=== PATIENT | female | born 1985 | race Caucasian/White ===

== ENCOUNTER → 2017-06-18 11:50 | Outpatient (CLI) | payer OTHER, SELFPAY ==
[2017-06-18 12:55] LABS: Hematocrit 44.8 % (37-47); Hemoglobin 15.3 g/dl (12.0-15.0); Mean Corp Hgb Conc 34.2 g/gl (32-36); Mean Corpuscular Hgb 29.5 pg (27.0-32.0); Mean Corpuscular Volume 86.5 fL (81-99); Mean Platelet Vol. 9.9 fl (6.2-12.0); Platelet Count 309 K/mm3 (150-450); RBC Distribution Width CV 13.4 % (11.6-14.6); Red Blood Count 5.18 M/mm3 (4.2-5.4); White Blood Count 6.1 K/mm3 (4.4-11.0)
[2017-06-18 12:57] LABS: Scan Indicated on CBC? Y/N NO
[2017-06-18 13:15] LABS: hCG Titer Quant., Serum < 1 mIU/mL (<9 non-preg)
[2017-06-18 13:19] LABS: Hemoglobin A1c 5.7 % (4.2-6.3)
[2017-06-18 13:21] LABS: Progesterone Level 0.72 ng/mL (See Comment)
[2017-06-18 13:22] LABS: Estradiol 72.5 pg/mL; Follicle Stimulating Hormone 6.5 mIU/mL; Free T3 3.1 pg/mL (2.18-3.98); Luteinizing Hormone 9.1 mIU/mL; Prolactin 4.4 ng/mL; T4 Free Direct 1.05 ng/dL (0.76-1.46); Thyroid Stim Hormone (TSH) 1.75 uIU/mL (0.358-3.74)
[2017-06-20 15:04] LABS: HPV Reflexed? NOT INDICATED
== END ==
PROVIDERS: Visit Provider Obstetrics & Gynecology
DX: N92.6 Irregular menstruation, unspecified (principal); Z12.4 Encounter for screening for malignant neoplasm of cervix
CPT/HCPCS: 36415; 82670; 83001; 83002; 83036; 84144; 84146; 84403; 84439; 84443; 84481; 84702; 85027; 88175; G0145

== ENCOUNTER → 2017-07-09 12:25 | Outpatient (CLI) | payer OTHER, SELFPAY ==
--- NOTE | 2017-07-09 12:30 | US_ITS ---
STUDY: ULTRASOUND TRANSVAGINAL CLINICAL: Female, 31 years old. Dysfunctional uterine bleeding. TECHNIQUE: Transvaginal COMPARISON: None. FINDINGS: Normal uterine size measuring 6.6 x 4.0 x 5.5 cm in maximal craniocaudal dimension. There are no myometrial masses. Normal endometrial thickness measuring 2.3 mm. There are no endometrial masses, and there is no fluid in the endometrial cavity. Normal uterine cervix. Normal right ovary, measuring 3.8 x 1.6 x 3.1 cm. There are multiple follicles without a dominant cyst. Normal left ovary, measuring 3.3 x 1.8 x 3.0 cm. There are multiple follicles without a dominant cyst. There is no free fluid in the pelvis. Polycystic ovary disease: No. US/Transvaginal Non- IMPRESSION: No significant or definite abnormality. Electronically Signed: Deejay Rodrigues MD at 13:18 EDT , Service support ,
--- NOTE | 2017-07-09 12:30 | US_ITS ---
STUDY: ULTRASOUND TRANSVAGINAL CLINICAL: Female, 31 years old. Dysfunctional uterine bleeding. TECHNIQUE: Transvaginal COMPARISON: None. FINDINGS: Normal uterine size measuring 6.6 x 4.0 x 5.5 cm in maximal craniocaudal dimension. There are no myometrial masses. Normal endometrial thickness measuring 2.3 mm. There are no endometrial masses, and there is no fluid in the endometrial cavity. Normal uterine cervix. Normal right ovary, measuring 3.8 x 1.6 x 3.1 cm. There are multiple follicles without a dominant cyst. Normal left ovary, measuring 3.3 x 1.8 x 3.0 cm. There are multiple follicles without a dominant cyst. There is no free fluid in the pelvis. Polycystic ovary disease: No. US/Pelvic (Non ) IMPRESSION: No significant or definite abnormality. Electronically Signed: Deejay Rodrigues MD at 13:18 EDT , Service support ,
== END ==
PROVIDERS: Visit Provider Obstetrics & Gynecology
DX: N92.6 Irregular menstruation, unspecified (principal)
CPT/HCPCS: 76830; 76856; 93976

== ENCOUNTER → 2017-11-03 15:36 | Outpatient (CLI) | payer OTHER, SELFPAY ==
[2017-11-03 18:06] LABS: hCG Titer Quant., Serum < 1 mIU/mL (<9 non-preg)
== END ==
PROVIDERS: Visit Provider Obstetrics & Gynecology
DX: N91.2 Amenorrhea, unspecified (principal)
CPT/HCPCS: 36415; 84702

== ENCOUNTER → 2017-12-05 09:33 | Outpatient (CLI) | payer OTHER, SELFPAY ==
[2017-12-05 11:32] LABS: Progesterone Level 14.51 ng/mL (See Comment)
== END ==
PROVIDERS: Visit Provider Obstetrics & Gynecology
DX: N97.0 Female infertility associated with anovulation (principal)
CPT/HCPCS: 36415; 84144

== ENCOUNTER → 2018-01-01 16:36 | Outpatient (CLI) | payer OTHER, SELFPAY ==
[2018-01-02 12:11] LABS: Progesterone Level 2.24 ng/mL (See Comment)
== END ==
PROVIDERS: Visit Provider Obstetrics & Gynecology
DX: N97.0 Female infertility associated with anovulation (principal)
CPT/HCPCS: 36415; 84144

== ENCOUNTER → 2018-02-03 11:17 | Outpatient (CLI) | payer OTHER, SELFPAY | PROVIDERS: Visit Provider Obstetrics & Gynecology | DX: N97.0 Female infertility associated with anovulation (principal) | CPT/HCPCS: 36415; 84144 ==

== ENCOUNTER → 2018-03-09 11:02 | Outpatient (CLI) | payer OTHER, SELFPAY | PROVIDERS: Visit Provider Obstetrics & Gynecology | DX: N97.0 Female infertility associated with anovulation (principal) | CPT/HCPCS: 36415; 84144 ==

== ENCOUNTER → 2018-04-07 16:55 | Outpatient (CLI) | payer OTHER, SELFPAY ==
[2018-04-07 17:55] LABS: Progesterone Level 7.01 ng/mL (See Comment)
--- OUTSIDE RECORDS SUMMARY | 2018-05-24 23:44 | XMS RPT_ITS ---
:1985 Author Organization [facility] Care Team Providers Name Role Phone Nikkie Savita Attending Unavailable Primay Care Physicia, No Primary Care Unavailable Noiner, Savita Attending Unavailable Primay Care Physicia, No Primary Care Unavailable Shriner, Savita Attending Unavailable Primay Care Physicia, No Primary Care Unavailable Shriner, Savita Attending Unavailable Primay Care Physicia, No Primary Care Unavailable Shriner, Savita Attending Unavailable Primay Care Physicia, No Primary Care Unavailable Shriner, Savita Attending Unavailable Shriner, Savita Referring Unavailable Primay Care Physicia, No Primary Care Unavailable Shriner, Savita Attending Unavailable Shriner, Savita Attending Unavailable PROBLEMS PROBLEMS DATE TYPE CONDITION / CODE ATTENDING STATUS SOURCE 04/07/2018 Unknown N97.0 - Female Savita Lundy Active [place] infertility Community associated with Hospital anovulation / Repository N97.0(ICD-10) 11/03/2017 Unknown N91.2 - Savita Lundy Active [place] Amenorrhea, Community unspecified / Hospital N91.2(ICD-10) Repository 07/09/2017 Unknown N92.6 - Irregular ShrSavita sabillon Active [place] menstruation, Community unspecified / Hospital N92.6(ICD-10) Repository 06/18/2017 Unknown Z12.4 - Encounter Savita Lundy Active [place] for screening for [facility] neoplasm of Repository cervix / Z12.4(ICD-10) PROCEDURES PROCEDURES No Procedure Records FoundRESULTS RESULTS PROGESTERONE LEVEL Collected: 04/07/2018 Status: F Source: [place] 4:58 PM [facility] Order Comment: TODAY IS CYCLE DAY 21 TYPE CODE TESTS RESULT OUT OF REFERENCE UNITS RANGE LAB L509.4001 See Comment ng/mL Progesterone Normal 7.01 Result Comment: Progesterone Reference Table: UNITS Female: Follicular 0.15 - 1.40 ng/mL Luteal 3.34 - 25.56 ng/mL Mid-luteal 4.44 - 28.03 ng/mL Postmenopausal 0.0 - 0.73 ng/mL : 1st Trimester 11.22 - 90.00 ng/mL 2nd Trimester 25.55 - 89.40 ng/mL 3rd Trimester 48.40 -422.50 ng/mL Performed By: #### L509.4001 #### [facility] [address] [place], [address] PROGESTERONE LEVEL Collected: 03/09/2018 Status: F Source: [place] 11:15 AM [facility] REPOSITORY Order Comment: CYCLE DAY 23 TODAY. TYPE CODE TESTS RESULT OUT OF REFERENCE UNITS RANGE LAB L509.4001 See Comment ng/mL Progesterone Normal 17.80 Result Comment: Progesterone Reference Table: UNITS Female: Follicular 0.15 - 1.40 ng/mL Luteal 3.34 - 25.56 ng/mL Mid-luteal 4.44 - 28.03 ng/mL Postmenopausal 0.0 - 0.73 ng/mL : 1st Trimester 11.22 - 90.00 ng/mL 2nd Trimester 25.55 - 89.40 ng/mL 3rd Trimester 48.40 -422.50 ng/mL Performed By: #### L509.4001 #### [facility] [address] [place], [address] PROGESTERONE LEVEL Collected: 02/03/2018 Status: F Source: [place] 11:20 AM [facility] REPOSITORY Order Comment: TODAY IS CYCLE DAY 21. TYPE CODE TESTS RESULT OUT OF REFERENCE UNITS RANGE LAB L509.4001 See Comment ng/mL Progesterone Normal 16.80 Result Comment: Progesterone Reference Table: UNITS Female: Follicular 0.15 - 1.40 ng/mL Luteal 3.34 - 25.56 ng/mL Mid-luteal 4.44 - 28.03 ng/mL Postmenopausal 0.0 - 0.73 ng/mL : 1st Trimester 11.22 - 90.00 ng/mL 2nd Trimester 25.55 - 89.40 ng/mL 3rd Trimester 48.40 -422.50 ng/mL Performed By: #### L509.4001 #### [facility] [address] [place], [address] PROGESTERONE LEVEL Collected: 01/01/2018 Status: F Source: [place] 4:38 PM [facility] REPOSITORY TYPE CODE TESTS RESULT OUT OF REFERENCE UNITS RANGE LAB L509.4001 See Comment ng/mL Progesterone Normal 2.24 Result Comment: Progesterone Reference Table: UNITS Female: Follicular 0.15 - 1.40 ng/mL Luteal 3.34 - 25.56 ng/mL Mid-luteal 4.44 - 28.03 ng/mL Postmenopausal 0.0 - 0.73 ng/mL : 1st Trimester 11.22 - 90.00 ng/mL 2nd Trimester 25.55 - 89.40 ng/mL 3rd Trimester 48.40 -422.50 ng/mL Performed By: #### L509.4001 #### [facility] [address] [place], [address] PROGESTERONE LEVEL Collected: 12/05/2017 Status: F Source: [place] 9:35 AM [facility] REPOSITORY Order Comment: CYCLE DAY 22 TODAY. TYPE CODE TESTS RESULT OUT OF REFERENCE UNITS RANGE LAB L509.4001 See Comment ng/mL Progesterone Normal 14.51 Result Comment: Progesterone Reference Table: UNITS Female: Follicular 0.15 - 1.40 ng/mL Luteal 3.34 - 25.56 ng/mL Mid-luteal 4.44 - 28.03 ng/mL Postmenopausal 0.0 - 0.73 ng/mL : 1st Trimester 11.22 - 90.00 ng/mL 2nd Trimester 25.55 - 89.40 ng/mL 3rd Trimester 48.40 -422.50 ng/mL Performed By: #### L509.4001 #### [facility] [address] [place], [address] HCG TITER QUANT., Collected: 11/03/2017 Status: F Source: [place] SERUM 3:57 PM [facility] REPOSITORY TYPE CODE TESTS RESULT OUT OF RANGE REFERENCE UNITS LAB L700.8000 <9 non-preg mIU/mL Normal HCG < 1 QUANT. Performed By: #### L700.8000 #### [facility] [place], [address] TRANSVAGINAL Observed: 07/09/2017 Status: F Source: [place] NON- 12:31 PM [facility] REPOSITORY [facility] Imaging Services [address] [place] [address] Transvaginal Non- MR#: [id number] Acct: [id number] Name: JUDY CHILDERS Rep #: [id number] : 1985 F 31 From: Deejay Rodrigues MD PCP: Care Physician, No Primary Status: REG CLI Study: Transvaginal Non- Date of Exam: 07/09/17 Exam# [id number] Ordering Dr: Savita Lundy MD STUDY: ULTRASOUND TRANSVAGINAL CLINICAL: Female, 31 years old. Dysfunctional uterine bleeding. TECHNIQUE: Transvaginal COMPARISON: None. FINDINGS: Normal uterine size measuring 6.6 x 4.0 x 5.5 cm in maximal craniocaudal dimension. There are no myometrial masses. Normal endometrial thickness measuring 2.3 mm. There are no endometrial masses, and there is no fluid in the endometrial cavity. Normal uterine cervix. Normal right ovary, measuring 3.8 x 1.6 x 3.1 cm. There are multiple follicles without a dominant cyst. Normal left ovary, measuring 3.3 x 1.8 x 3.0 cm. There are multiple follicles without a dominant cyst. There is no free fluid in the pelvis. Polycystic ovary disease: No. US/Transvaginal Non- IMPRESSION: No significant or definite abnormality. Electronically Signed: Deejay Rodrigues MD at 13:18 EDT , Service support , CC: No Primary Care Physician; Savita Lundy MD Engraver Steel Plate: Signed PELVIC (NON ) Observed: 07/09/2017 Status: F Source: [place] 12:31 PM [facility] REPOSITORY [facility] Imaging Services [facility] [place] [address] Pelvic (Non ) MR#: [id number] Acct: [id number] Name: JUDY CHILDERS Rep #: [id number] : 1985 F 31 From: Deejay Rodrigues MD PCP: Care Physician, No Primary Status: REG CLI Study: Pelvic (Non ) Date of Exam: 07/09/17 Exam# [id number] Ordering Dr: Savita Lundy MD STUDY: ULTRASOUND TRANSVAGINAL CLINICAL: Female, 31 years old. Dysfunctional uterine bleeding. TECHNIQUE: Transvaginal COMPARISON: None. FINDINGS: Normal uterine size measuring 6.6 x 4.0 x 5.5 cm in maximal craniocaudal dimension. There are no myometrial masses. Normal endometrial thickness measuring 2.3 mm. There are no endometrial masses, and there is no fluid in the endometrial cavity. Normal uterine cervix. Normal right ovary, measuring 3.8 x 1.6 x 3.1 cm. There are multiple follicles without a dominant cyst. Normal left ovary, measuring 3.3 x 1.8 x 3.0 cm. There are multiple follicles without a dominant cyst. There is no free fluid in the pelvis. Polycystic ovary disease: No. US/Pelvic (Non ) IMPRESSION: No significant or definite abnormality. Electronically Signed: Deejay Rodrigues MD at 13:18 EDT , Service support , CC: No Primary Care Physician; Savita Lundy MD Eng[employer]ver Steel Plate: Signed CBC-COMPLETE BLOOD CNT Collected: 06/18/2017 Status: F Source: [place] NO DIFF 12:03 PM [facility] REPOSITORY TYPE CODE TESTS RESULT OUT OF RANGE REFERENCE UNITS LAB L100.1000 4.4-11.0 K/mm3 Normal WBC 6.1 LAB L100.1200 4.2-5.4 M/mm3 Normal RBC 5.18 LAB L100.1300 12.0-15.0 g/dl High HGB 15.3 LAB L100.1400 37-47 % Normal HCT 44.8 LAB L100.1500 81-99 fL Normal MCV 86.5 LAB L100.1600 27.0-32.0 pg Normal MCH 29.5 LAB L100.1700 32-36 g/gl Normal MCHC 34.2 LAB L100.1810 11.6-14.6 % Normal RDW CV 13.4 LAB L100.1820 35.1-43.9 fl Normal RDW SD 42.0 LAB L100.1900 150-450 K/mm3 Normal PLT 309 LAB L100.2000 6.2-12.0 fl Normal MPV 9.9 Performed By: #### L100.0500 #### [facility] [address] [place], [address] HCG TITER QUANT., Collected: 06/18/2017 Status: F Source: [place] SERUM 12:03 PM [facility] REPOSITORY TYPE CODE TESTS RESULT OUT OF RANGE REFERENCE UNITS LAB L700.8000 <9 non-preg mIU/mL Normal HCG < 1 QUANT. Performed By: #### L700.8000 #### [facility] [address] [place], [address] HEMOGLOBIN A1C Collected: 06/18/2017 Status: F Source: [place] 12:03 PM [facility] REPOSITORY TYPE CODE TESTS RESULT OUT OF RANGE REFERENCE UNITS LAB L501.9985 4.2-6.3 % Normal HGB A1C 5.7 Performed By: #### L501.9985 #### [facility] [address] [place], [address] TESTOSTERONE, SERUM TOTAL Collected: 06/18/2017 Status: F Source: [place] 12:03 PM [facility] REPOSITORY TYPE CODE TESTS RESULT OUT OF REFERENCE UNITS RANGE LAB L509.3000 ng/dL Testosterone Normal 64.00 Result Comment: NORMAL REFERENCE RANGES MALE AGE <50 123.06 - 813.86 ng/dL MALE AGE >50 89.98 - 780.10 ng/dL FEMALE PREMENOPAUSE AGE 21 - 60 9.01 - 47.94 ng/dL FEMALE POSTMENOPAUSE AGE 45 - 89 <7.00 - 45.62 ng/dL REFERENCE RANGE AND METHODOLOGY CHANGED 04/16/2017 Performed By: #### L509.3000, L509.4001 #### [facility] [address] [place], [address] PROGESTERONE LEVEL Collected: 06/18/2017 Status: F Source: [place] 12:03 PM [facility] REPOSITORY TYPE CODE TESTS RESULT OUT OF REFERENCE UNITS RANGE LAB L509.4001 See Comment ng/mL Progesterone Normal 0.72 Result Comment: Progesterone Reference Table: UNITS Female: Follicular 0.15 - 1.40 ng/mL Luteal 3.34 - 25.56 ng/mL Mid-luteal 4.44 - 28.03 ng/mL Postmenopausal 0.0 - 0.73 ng/mL : 1st Trimester 11.22 - 90.00 ng/mL 2nd Trimester 25.55 - 89.40 ng/mL 3rd Trimester 48.40 -422.50 ng/mL Performed By: #### L509.3000, L509.4001 #### [facility] [address] [facility] [place], [place], [address] FREE T3 Collected: 06/18/2017 Status: F Source: [place] 12:03 PM [facility] REPOSITORY TYPE CODE TESTS RESULT OUT OF RANGE REFERENCE UNITS LAB L501.26922 2.18-3.98 pg/mL Normal FREE T3 3.1 Performed By: #### L501.86083, L501.9520, L506.0400, L3100.5125, L3100.5170, L3100.5420, L3300.1750 #### [facility] [address] [place], [place], [address] THYROID STIM HORMONE Collected: 06/18/2017 Status: F Source: [place] (TSH) 12:03 PM [facility] REPOSITORY TYPE CODE TESTS RESULT OUT OF RANGE REFERENCE UNITS LAB L501.9520 0.358-3.74 uIU/mL Normal TSH 1.75 Performed By: #### L501.61591, L501.9520, L506.0400, L3100.5125, L3100.5170, L3100.5420, L3300.1750 #### [facility] [address] [place], [place], [address] T4 FREE DIRECT Collected: 06/18/2017 Status: F Source: [place] 12:03 PM [facility] REPOSITORY TYPE CODE TESTS RESULT OUT OF RANGE REFERENCE UNITS LAB L506.0400 0.76-1.46 ng/dL Normal T4 FREE 1.05 DIRECT Performed By: #### L501.43394, L501.9520, L506.0400, L3100.5125, L3100.5170, L3100.5420, L3300.1750 #### [facility] [address] [place], [place], [address] FOLLICLE STIMULATING Collected: 06/18/2017 Status: F Source: [place] HORMONE 12:03 PM [facility] REPOSITORY TYPE CODE TESTS RESULT OUT OF RANGE REFERENCE UNITS LAB L3100.5125 mIU/mL Normal FSH 6.5 Result Comment: NORMAL REFERENCE RANGES FEMALE FOLLICULAR 2.3 - 12.6 mIU/mL MID-CYCLE PEAK 5.2 - 17.5 mIU/mL LUTEAL 1.7 - 12.9 mIU/mL POST-MENOPAUSAL ON MHT 5.9 - 72.8 mIU/mL NOT ON MHT 12.7 - 132.2 mlU/mL MALE 0.7 - 10.8 mIU/mL NEW TEST METHOD AND REFERENCE RANGES SEPTEMBER 16, 2011 Performed By: #### L501.75738, L501.9520, L506.0400, L3100.5125, L3100.5170, L3100.5420, L3300.1750 #### [facility] [address] [facility] [address] [place], [place], [address] LUTEINIZING HORMONE Collected: 06/18/2017 Status: F Source: [place] 12:03 PM [facility] REPOSITORY TYPE CODE TESTS RESULT OUT OF RANGE REFERENCE UNITS LAB L3100.5170 mIU/mL Normal LH 9.1 Result Comment: NORMAL REFERENCE RANGES FEMALE FOLLICULAR 1.9 - 26.2 mIU/mL MID-CYCLE PEAK 22.8 - 76.1 mIU/mL LUTEAL 0.6 - 16.6 mIU/mL POST-MENOPAUSAL ON MHT 1.1 - 52.4 mIU/mL NOT ON MHT 8.6 - 61.8 mIU/mL MALE 1.2 - 10.6 mIU/mL NEW TEST METHOD AND REFERENCE RANGES SEPTEMBER 16, 2011 Performed By: #### L501.04957, L501.9520, L506.0400, L3100.5125, L3100.5170, L3100.5420, L3300.1750 #### [facility] [address] [place], [place], [address] PROLACTIN Collected: 06/18/2017 Status: F Source: [place] 12:03 PM [facility] REPOSITORY TYPE CODE TESTS RESULT OUT OF RANGE REFERENCE UNITS LAB L3100.5420 ng/mL Normal PROLACTIN 4.4 Result Comment: NORMAL REFERENCE RANGES FEMALE NON- 2.2 - 30.3 ng/mL 8.1 - 347.6 ng/mL POST-MENOPAUSAL 0.7 - 31.5 ng/mL MALE 2.5 - 17.4 ng/mL NEW TEST METHOD AND REFERENCE RANGES SEPTEMBER 16, 2011 Performed By: #### L501.06205, L501.9520, L506.0400, L3100.5125, L3100.5170, L3100.5420, L3300.1750 #### [facility] [address] [place], [place], [address] ESTRADIOL Collected: 06/18/2017 Status: F Source: [place] 12:03 [facility] REPOSITORY TYPE CODE TESTS RESULT OUT OF RANGE REFERENCE UNITS LAB L3300.1750 pg/mL Normal ESTRADIOL 72.5 Result Comment: NORMAL REFERENCE RANGES FEMALE FOLLICULAR 21.4 - 164.8 pg/mL MID-CYCLE PEAK 49.9 - 367.2 pg/mL LUTEAL 40.2 - 259.0 pg/mL POST-MENOPAUSAL ON MHT <11.0 - 462.1 pg/mL NOT ON MHT <11.0 - 58.3 pg/mL MALE <11.0 - 52.5 pg/mL NOTE: [facility] HAS CONFIRMED THE DRUG FULVETRANT (FASLODEX) MAY CAUSE FALSELY ELEVATED ESTRADIOL RESULTS WHEN USING THIS TEST METHOD. IF PATIENT IS TAKING FULVESTRANT AN ALTERNATIVE METHOD SHOULD BE USED TO DETERMINE ESTRADIOL CONCENTRATION. Performed By: #### L501.51772, L501.9520, L506.0400, L3100.5125, L3100.5170, L3100.5420, L3300.1750 #### [facility] [address] [place], [address] PAP I-G W/RFX HRHPV Collected: 06/18/2017 Status: F Source: [place] 11:30 AM [facility] REPOSITORY Order Comment: CYTOLOGY INFORMATION: - CLINICAL INFORMATION: - DATE LMP/MENOPAUSE: 05/24/17 LMP - COLLECTION VIAL: Thin Prep Vial - PROJECT LEADER SOURCE: CERVICAL/ENDOCERVICAL - COLLECTION TECHNIQUE: BRUSH/SPATULA Specimen Comment: [id number] Specimen Comment: No. of containers..01 ThinPrep Vial TYPE CODE TESTS RESULT OUT OF RANGE REFERENCE UNITS LAB L7400.0800 . Normal DIAGN Comment Result Comment: NEGATIVE FOR INTRAEPITHELIAL LESION AND MALIGNANCY. LAB L7400.0900 . Normal ADEQ Comment Result Comment: Satisfactory for evaluation. Endocervical and/or squamous metaplastic cells (endocervical component) are present. LAB L7400.1400 . Normal PERFORM Comment Result Comment: Keara Walters, Protection Agent (ASCP) LAB L7400.2575 . Normal TEST METHOD Comment Result Comment: This liquid based ThinPrep(R) pap test was screened with the use of an image guided system. LAB L7400.2600 . Normal . COMM LAB L7400.2700 . Normal PAPSMR Comment Result Comment: The Pap smear is a screening test designed to aid in the detection of premalignant and malignant conditions of the uterine cervix. It is not a diagnostic procedure and should not be used as the sole means of detecting cervical cancer. Both false-positive and false-negative reports do occur. LAB L7400.2800 . Normal HPV RFLX Comment Result Comment: The HPV DNA reflex criteria were not met with this specimen result therefore, no HPV testing was performed. Performed at: [address] [id number] Aerodynamics Engineer: Nancy Alexander MD, Phone: [phone] Performed By: #### L7400.0350 #### [facility] (refer to [facility] for specific site) refer to report for address and phone number ALLERGIES ALLERGIES No Allergies Records FoundENCOUNTERS ENCOUNTERS ADMIT/DISCHARGE ACCOUNT ADMITTING ENCOUNTER LOCATION SOURCE NUMBER [facility] 04/07/2018 [id number] Ambulatory [place] [facility] ing:WOBLAB Repository 03/09/2018 [id number] Ambulatory [place] [facility] 8 [facility] ing:WOBLAB Repository 02/03/2018 [id number] Ambulatory [place] [facility] ing:WOBLAB Repository 01/01/2018 [id number] Ambulatory [place] [facility] [facility] ing:[place] Repository 12/05/2017 [id number] [place] [facility] ing:[place] Repository 11/03/2017 [id number] [place] [facility] ing:[place] Repository 07/09/2017 [id number] Ambulatory [place] [facility] ing:US Repository 06/18/2017 [id number] Ambulatory [place] [facility] ing:WOBLAB Repository PAYERS PAYERS ENCOUNTER GUARANTOR PAYER SUBSCRIBER SOURCE 04/07/2018 JUDY D Primary JUDY D [place] [id number] [facility] WEAVERDOB: [facility] Number: [id number] [id number] Repository [address]Zby: 330) Date:2952-15-54EJ [phone] () [address] [address]EB: 04/07/2018 Secondary NOT GIVENUNK [place] Insurance:SELF PAY [facility] Number: Effective Repository Date:2018-04-07 03/09/2018 JUDY D Primary JUDY D [place] [id number] Insurance[facility] WEAVERDOB: [facility] Number: [id number], [place] [id number] Repository [address]Dei: 330) Date:5044-94-25RQ [phone] ( [address] [address]TR: 03/09/2018 Secondary NOT GIVENUNK [place] Insurance:SELF PAY [facility] Number: Effective Repository Date:2018-03-09 02/03/2018 JUDY D Primary JUDY D [place] [id number] [facility] Number: [id number], [place] [id number] Repository [address]Gfu: (330) Date:9995-82-17TL [phone] () [address] [address]DL: 02/03/2018 Secondary NOT GIVENUNK [place] Insurance:SELF PAY [facility] Number: Effective Repository Date:2018-02-03 01/01/2018 JUDY D Primary JUDY D [place] [id number] Insurance:AULTCAREPol WEAVERDOB: [facility] icy Number: [id number], [place] [id number] Repository [address]Nvu: (330) Date:2927-07-19DD [phone] () [address] [place] [phone]: 01/01/2018 Secondary NOT GIVENUNK [place] Insurance:SELF PAY [facility] Number: Effective Repository Date:2018-01-01 12/05/2017 JUDY D Primary JUDY D [place] [id number] Insurance:AULTCAREPol WEAVERDOB: [facility] Number: [id number], [place] [id number] Repository [address]Yva: (330) Date:5209-17-27WQ [phone] () [address] [address]CX: 12/05/2017 Secondary NOT GIVENUNK [place] Insurance:SELF PAY [facility] Number: Effective Repository Date:2017-12-05 11/03/2017 JUDY D Primary JUDY D [place] [id number] Insurance:AULTCAREPol WEAVERDOB: [facility] Number: [id number], [place] [id number] Repository [address]Tac: (330) Date:2536-58-42NE [phone] () [address] [address]EV: 11/03/2017 Secondary NOT GIVENUNK [place] Insurance:SELF PAY [facility] Number: Effective Repository Date:2017-11-03 07/09/2017 JUDY D Primary JUDY D [place] [id number] Insurance:AULTCAREPol WEAVERDOB: [facility] icy Number: [id number], [place] [id number] Repository [address]Ufz: 330) Date:6534-11-61ZP [phone] () [address] [place] [phone]: 07/09/2017 Secondary NOT GIVENUNK [place] Insurance:SELF PAY [facility] Number: Effective Repository Date:2017-07-07 06/18/2017 Judy [id number] Primary Judy [place] [facility] Insurance:AULTCAREPol WeaverB: [facility] Number: [id number] [address]Sjs: 330 [id number] Repository [phone] () Date:4408-34-92GS [address] [place] [phone]: 06/18/2017 Secondary NOT GIVENUNK [place] Insurance:SELF PAY [facility] Number: Effective Repository Date:2017-06-18
== END ==
PROVIDERS: Visit Provider Obstetrics & Gynecology
DX: N97.0 Female infertility associated with anovulation (principal)
CPT/HCPCS: 36415; 84144

== ENCOUNTER → 2019-06-08 08:50 | Outpatient (CLI) | payer BC, SELFPAY ==
[2019-06-08 09:33] LABS: hCG Titer Quant., Serum < 1 mIU/mL (1-3)
[2019-06-08 09:39] LABS: Estradiol 44.8 pg/mL; Follicle Stimulating Hormone 6.9 mIU/mL; Luteinizing Hormone 4.3 mIU/mL; Thyroid Stim Hormone (TSH) 1.25 uIU/mL (0.358-3.74)
== END ==
DX: E28.9 Ovarian dysfunction, unspecified (principal)
CPT/HCPCS: 36415; 82670; 83001; 83002; 84144; 84443; 84702

== ENCOUNTER → 2019-06-14 09:10 | Outpatient (CLI) | payer BC, SELFPAY ==
[2019-06-14 10:25] LABS: Estradiol 656.2 pg/mL; Luteinizing Hormone 1.1 mIU/mL
[2019-06-14 11:00] LABS: Progesterone Level 0.26 ng/mL (See Comment)
== END ==
DX: E28.9 Ovarian dysfunction, unspecified (principal)
CPT/HCPCS: 36415; 82670; 83002; 84144

== ENCOUNTER → 2019-06-16 09:05 | Outpatient (CLI) | payer MEDICARE, SELFPAY ==
[2019-06-16 09:42] LABS: Estradiol 1443.4 pg/mL; Luteinizing Hormone 1.6 mIU/mL
[2019-06-16 10:37] LABS: Progesterone Level 0.23 ng/mL (See Comment)
== END ==
DX: E28.9 Ovarian dysfunction, unspecified (principal)
CPT/HCPCS: 36415; 82670; 83002; 84144

== ENCOUNTER → 2019-06-30 08:46 | Outpatient (CLI) | payer BC, SELFPAY ==
[2019-06-30 10:03] LABS: hCG Titer Quant., Serum < 1 mIU/mL (1-3)
[2019-06-30 10:08] LABS: Estradiol 42.1 pg/mL; Follicle Stimulating Hormone 5.7 mIU/mL; Luteinizing Hormone 1.9 mIU/mL; Thyroid Stim Hormone (TSH) 1.27 uIU/mL (0.358-3.74)
== END ==
DX: E28.9 Ovarian dysfunction, unspecified (principal)
CPT/HCPCS: 36415; 82670; 83001; 83002; 84144; 84443; 84702

== ENCOUNTER → 2019-07-09 09:06 | Outpatient (CLI) | payer BC, SELFPAY ==
[2019-07-09 09:57] LABS: Progesterone Level 0.21 ng/mL (See Comment)
== END ==
DX: E28.9 Ovarian dysfunction, unspecified (principal)
CPT/HCPCS: 36415; 82670; 83002; 84144

== ENCOUNTER → 2019-07-13 08:46 | Outpatient (CLI) | payer BC, SELFPAY ==
[2019-07-13 10:14] LABS: Progesterone Level < 0.21 ng/mL (See Comment)
== END ==
DX: E28.9 Ovarian dysfunction, unspecified (principal)
CPT/HCPCS: 36415; 82670; 83002; 84144

== ENCOUNTER → 2019-07-23 08:52 | Outpatient (CLI) | payer BC, SELFPAY ==
[2019-07-23 09:49] LABS: Progesterone Level 30.85 ng/mL (See Comment)
[2019-07-23 10:47] LABS: Estradiol 2506.4 pg/mL
== END ==
DX: E28.9 Ovarian dysfunction, unspecified (principal)
CPT/HCPCS: 36415; 82670; 84144

== ENCOUNTER → 2019-07-28 07:14 | Outpatient (CLI) | payer BC, SELFPAY ==
[2019-07-28 07:52] LABS: hCG Titer Quant., Serum 3 mIU/mL (1-3)
[2019-07-28 08:10] LABS: Progesterone Level 29.27 ng/mL (See Comment)
== END ==
DX: Z32.00 Encounter for pregnancy test, result unknown (principal)
CPT/HCPCS: 36415; 84144; 84702

== ENCOUNTER → 2019-09-14 08:37 | Outpatient (CLI) | payer BC, SELFPAY ==
[2019-09-14 09:21] LABS: Progesterone Level 0.29 ng/mL (See Comment); hCG Titer Quant., Serum < 1 mIU/mL (1-3)
[2019-09-14 09:25] LABS: Follicle Stimulating Hormone 7.4 mIU/mL; Luteinizing Hormone 3.8 mIU/mL; Thyroid Stim Hormone (TSH) 2.23 uIU/mL (0.358-3.74)
== END ==
DX: E28.9 Ovarian dysfunction, unspecified (principal)
CPT/HCPCS: 36415; 82670; 83001; 83002; 84144; 84443; 84702

== ENCOUNTER → 2019-09-22 08:21 | Outpatient (CLI) | payer BC, SELFPAY ==
[2019-09-22 08:56] LABS: Estradiol 938.5 pg/mL; Luteinizing Hormone 3.6 mIU/mL
[2019-09-22 09:17] LABS: Progesterone Level < 0.21 ng/mL (See Comment)
== END ==
DX: E28.9 Ovarian dysfunction, unspecified (principal)
CPT/HCPCS: 36415; 82670; 83002; 84144

== ENCOUNTER → 2019-10-04 08:40 | Outpatient (CLI) | payer BC, SELFPAY ==
[2019-10-04 09:22] LABS: Estradiol 294.1 pg/mL
[2019-10-04 09:23] LABS: Progesterone Level 33.69 ng/mL (See Comment)
== END ==
DX: E28.9 Ovarian dysfunction, unspecified (principal)
CPT/HCPCS: 36415; 82670; 84144

== ENCOUNTER → 2019-10-08 08:53 | Outpatient (CLI) | payer BC, SELFPAY ==
[2019-10-08 09:48] LABS: Progesterone Level 28.75 ng/mL (See Comment)
[2019-10-08 09:50] LABS: hCG Titer Quant., Serum 257 mIU/mL (1-3)
== END ==
DX: Z32.00 Encounter for pregnancy test, result unknown (principal)
CPT/HCPCS: 36415; 84144; 84702

== ENCOUNTER → 2019-10-11 08:43 | Outpatient (CLI) | payer BC, SELFPAY ==
[2019-10-11 09:55] LABS: hCG Titer Quant., Serum 861 mIU/mL (1-3)
[2019-10-11 10:02] LABS: Estradiol 1168.2 pg/mL
[2019-10-11 10:44] LABS: Progesterone Level 26.58 ng/mL (See Comment)
[2019-10-11 14:06] LABS: Thyroid Stim Hormone (TSH) 2.05 uIU/mL (0.358-3.74)
== END ==
DX: E28.9 Ovarian dysfunction, unspecified (principal)
CPT/HCPCS: 36415; 82670; 84144; 84443; 84702

== ENCOUNTER → 2019-10-18 08:12 | Outpatient (CLI) | payer BC, SELFPAY ==
[2019-10-18 08:49] LABS: Estradiol 574.4 pg/mL
[2019-10-18 08:52] LABS: Progesterone Level 35.55 ng/mL (See Comment)
[2019-10-18 09:04] LABS: hCG Titer Quant., Serum 11653 mIU/mL (1-3)
== END ==
PROVIDERS: Visit Provider Obstetrics & Gynecology Reproductive Endocrinology
DX: O09.00 Supervision of pregnancy with history of infertility, unspecified trimester (principal); Z3A.00 Weeks of gestation of pregnancy not specified
CPT/HCPCS: 36415; 82670; 84144; 84702

== ENCOUNTER → 2019-10-25 09:07 | Outpatient (CLI) | payer BC, SELFPAY ==
[2019-10-25 09:45] LABS: Estradiol 923.1 pg/mL
[2019-10-25 09:54] LABS: Progesterone Level 28.61 ng/mL (See Comment)
== END ==
PROVIDERS: Referring Provider Obstetrics & Gynecology Reproductive Endocrinology
DX: O09.00 Supervision of pregnancy with history of infertility, unspecified trimester (principal)
CPT/HCPCS: 36415; 82670; 84144; 84702

== ENCOUNTER → 2019-11-04 | Outpatient (CLI) | payer BC, SELFPAY ==
[2019-11-04 17:36] LABS: Chlamydia Trachomatis by PCR Negative (Negative); Neisserai gonorrhoeae by PCR Negative (Negative); Probe Check PASS; Sample Adequacy Control PASS; Specimen Processing Control PASS
== END | disposition home or self-care (01) ==
LOC: LABSPEC 14:26
PROVIDERS: Visit Provider Obstetrics & Gynecology
DX: Z11.3 Encounter for screening for infections with a predominantly sexual mode of transmission (principal)
CPT/HCPCS: 87491; 87591

== ENCOUNTER → 2019-12-02 10:08 | Outpatient (CLI) | payer BC, SELFPAY ==
[2019-12-02 10:40] LABS: Color, Urine Yellow (Yellow); Glucose, Dipstick Normal (Normal); Ketone-Dipstick 5 mg/dl (Negative); Leukocyte Esterase-Dipstick 25 /ul (Negative); Nitrite-Dipstick Negative (Negative); Occult Blood-Urine Negative /ul (Negative); Protein-Dipstick Negative (Negative); Urine Bilirubin Dipstick Negative (Negative); Urine Clarity Sl. Cloudy (Clear); Urine Urobilinogen Normal (Normal); Urine pH 6.5 (5.0 - 8.0)
[2019-12-02 10:55] LABS: Amphetamine Urine VISTA NEGATIVE (<1000 ng/mL); Barbiturate Urine VISTA NEGATIVE (< 200 ng/mL); Benzodiazepine Urine VISTA NEGATIVE (< 200 ng/mL); Cocaine Urine VISTA NEGATIVE (< 300 ng/mL); Ecstacy Urine VISTA NEGATIVE (< 500 ng/mL); Methadone Urine VISTA NEGATIVE (< 300 ng/mL); PCP Urine VISTA NEGATIVE (< 25 ng/mL); THC Urine VISTA NEGATIVE (< 50 ng/mL); Vista UDS pH Range 6
[2019-12-02 10:57] LABS: Absolute Lymphocyte Count 1.71 X10^3/uL (0.83-4.51); Absolute Neutrophil Count 4.3 X10^3/uL (2.0-7.7); Basophil# 0.05 X10^3/uL; Basophil% 0.8 % (0-1); Eosinophil# 0.06 X10^3/uL; Eosinophils% 0.9 % (0-5); Hematocrit 38.9 % (37-47); Hemoglobin 13.4 g/dL (12.0-15.0); Lymphocyte # 1.71 X10^3/ul (4.0); Lymphocyte % 25.9 % (19-41); Mean Corp Hgb Conc 34.4 g/dL (32-36); Mean Corpuscular Hgb 29.9 pg (27.0-32.0); Mean Corpuscular Volume 86.8 fL (81-99); Mean Platelet Vol. 10.2 fl (6.2-12.0); Monocyte% 7.6 % (0-10); NRBC Flagged by Analyzer 0 % (0-5); Neutrophil # 4.27 X10^3/uL (2.7-7.7); Neutrophil % 64.5 % (47-70); Platelet Count 289 K/mm3 (150-450); RBC Distribution Width CV 11.7 % (11.6-14.6); RBC Distribution Width SD 37.2 fl (35.1-43.9); Red Blood Count 4.48 M/mm3 (4.2-5.4); White Blood Count 6.6 K/mm3 (4.4-11.0)
[2019-12-02 11:08] LABS: Thyroid Stim Hormone (TSH) 0.01 uIU/mL (0.358-3.74)
[2019-12-02 12:08] LABS: HIV - WCH Non-Reactive (Nonreactive); Hepatitis B Surface Antigen Non-Reactive (Nonreactive); Hepatitis C Antibody Non-Reactive (Nonreactive); Rubella IgG > 500.0 IU/mL
[2019-12-07 13:31] LABS: Free T3 3.6 pg/mL (2.18-3.98); T4 Free Direct 1.26 ng/dL (0.76-1.46)
[2019-12-09 11:05] LABS: Prenatal RPR NONREACTIVE (NONREACTIVE)
== END ==
PROVIDERS: Visit Provider Obstetrics & Gynecology
DX: Z34.81 Encounter for supervision of other normal pregnancy, first trimester (principal)
CPT/HCPCS: 36415; 80307; 81002; 84439; 84443; 84481; 85025; 86703; 86762; 86803; 87340

== ENCOUNTER → 2020-02-28 10:00 | Outpatient (CLI) | payer BC, SELFPAY ==
[2020-02-28 11:09] LABS: Hematocrit 35.7 % (37-47); Hemoglobin 11.8 g/dL (12.0-15.0); Mean Corp Hgb Conc 33.1 g/dL (32-36); Mean Corpuscular Hgb 29.5 pg (27.0-32.0); Mean Corpuscular Volume 89.3 fL (81-99); Mean Platelet Vol. 10.7 fl (6.2-12.0); Platelet Count 280 K/mm3 (150-450); RBC Distribution Width CV 13.2 % (11.6-14.6); RBC Distribution Width SD 43.6 fl (35.1-43.9); White Blood Count 10.4 K/mm3 (4.4-11.0)
[2020-02-28 11:31] LABS: Glucose Challenge Gest 1H 50g 191 mg/dL (70-140)
== END ==
PROVIDERS: Visit Provider Obstetrics & Gynecology
DX: Z34.82 Encounter for supervision of other normal pregnancy, second trimester (principal)
CPT/HCPCS: 36415; 82950; 85027

== ENCOUNTER → 2020-03-02 06:42 | Outpatient (CLI) | payer BC, SELFPAY ==
[2020-03-02 07:25] LABS: Glucose GTT-Gestation. Fasting 98 mg/dL (<105)
[2020-03-02 08:38] LABS: Glucose GTT-Gestational 1 Hr 157 mg/dL (<190)
[2020-03-02 09:59] LABS: Glucose GTT-Gestational 2 Hr 142 mg/dL (<165)
[2020-03-02 11:01] LABS: Glucose GTT-Gestational 3 Hr 95 L (<145)
== END ==
PROVIDERS: Referring Provider Obstetrics & Gynecology; Visit Provider Obstetrics & Gynecology
DX: O24.912 Unspecified diabetes mellitus in pregnancy, second trimester (principal); Z3A.00 Weeks of gestation of pregnancy not specified
CPT/HCPCS: 36415; 82951; 82952

== ENCOUNTER → 2020-03-27 09:05 | Outpatient (CLI) | payer BC, SELFPAY ==
[2020-03-27 14:45] LABS: T4 Free Direct 0.98 ng/dL (0.76-1.46); Thyroid Stim Hormone (TSH) 1.77 uIU/mL (0.358-3.74)
== END ==
PROVIDERS: Visit Provider Obstetrics & Gynecology
DX: O99.280 Endocrine, nutritional and metabolic diseases complicating pregnancy, unspecified trimester (principal); E03.9 Hypothyroidism, unspecified; O30.009 Twin pregnancy, unspecified number of placenta and unspecified number of amniotic sacs, unspecified trimester; Z3A.00 Weeks of gestation of pregnancy not specified
CPT/HCPCS: 36415; 84439; 84443; 86850; 86900; 86901

== ENCOUNTER → 2020-05-15 | Outpatient (CLI) | payer BC, SELFPAY | END | disposition home or self-care (01) | LOC: LABSPEC 05-22 13:43 | PROVIDERS: Visit Provider Obstetrics & Gynecology | DX: Z36.85 Encounter for antenatal screening for Streptococcus B (principal) ==

== ENCOUNTER → 2020-05-23 11:10 | Outpatient (CLI) | payer BC, SELFPAY | PROVIDERS: Referring Provider Family Medicine; Visit Provider Family Medicine | DX: Z11.59 Encounter for screening for other viral diseases (principal) | CPT/HCPCS: 87635; C9803; U0003 ==

== ENCOUNTER → 2020-05-24 | Outpatient (CLI) | payer BC, SELFPAY ==
[2020-05-24 11:15] LABS: Group B Strep DNA By PCR Negative (Negative); Internal Control PASS; Probe Check PASS; Specimen Processing Control PASS
== END | disposition home or self-care (01) ==
LOC: LABSPEC 08:58
PROVIDERS: Visit Provider Obstetrics & Gynecology
DX: Z36.85 Encounter for antenatal screening for Streptococcus B (principal)
CPT/HCPCS: 87081; 87653

== ENCOUNTER 2020-05-26 06:50 | Inpatient (IN) | payer BC, MEDICAID, SELFPAY ==
[2020-05-26] VITALS (29 sets, daily range): BP systolic 119–162; BP diastolic 73–94; PULSE 58–101; TEMP 36.2–37.7; O2SAT 97–100; BMI 29.5
[2020-05-26] MEDS: Lactated Ringers 1,000 ML 50 ML IV (07:35)
[2020-05-26 08:00] LABS: Absolute Lymphocyte Count 1.67 X10^3/uL (0.83-4.51); Absolute Neutrophil Count 4.5 X10^3/uL (2.0-7.7); Basophil# 0.07 X10^3/uL; Eosinophil# 0.14 X10^3/uL; Eosinophils% 2.1 % (0-5); Hematocrit 31.8 % (37-47); Hemoglobin 10.3 g/dL (12.0-15.0); Lymphocyte # 1.67 X10^3/ul (4.0); Lymphocyte % 24.7 % (19-41); Mean Corp Hgb Conc 32.4 g/dL (32-36); Mean Corpuscular Hgb 26.9 pg (27.0-32.0); Mean Platelet Vol. 11.8 fl (6.2-12.0); Monocyte% 5.9 % (0-10); NRBC Flagged by Analyzer 0 % (0-5); Neutrophil # 4.45 X10^3/uL (2.7-7.7); Neutrophil % 65.9 % (47-70); Platelet Count 263 K/mm3 (150-450); RBC Distribution Width CV 13.2 % (11.6-14.6); RBC Distribution Width SD 40.1 fl (35.1-43.9); Red Blood Count 3.83 M/mm3 (4.2-5.4); White Blood Count 6.8 K/mm3 (4.4-11.0)
[2020-05-26] MEDS: Oxytocin 30 units/NS 500 ml 30 UNITS/500 ML IV.SOLN IV (08:03)
--- NOTE | 2020-05-26 08:19 | HP.PCM_ITS ---
History and Physical Chief complaint: Induction of labor Di twins IUGR History of present illness: 34-year-old at 37 weeks and 2 days with CLAIRE: 06/14/2020 by LMP arrives for induction of labor with di-di twins IUGR baby A. Denies headache, visual changes, chest pain, shortness of breath, nausea vomiting, right upper quadrant pain. Patient states that good movement. complicated by di-di twins via IVF, IUGR baby A AC less than the 3rd percentile EFW 2417 g discordance 10th% baby B 2657 g, Rh- Obstetric history G1: Current Past medical history: None Medications: vitamin, aspirin Past surgical history: Appendectomy Allergies: Penicillin (rash) Social history: 1 pack/day smoker, denies alcohol or drug use Family history: Denies history DVT or PE Review of systems: Besides the above pertinent positives a full review of systems was performed and found to be negative Physical exam Vital Signs Temp Pulse BP Pulse Ox 05/26/20 07:21 99.0 F 76 141/87 H 97 General: Normal-appearing no acute distress HEENT: Normocephalic atraumatic no cervical lymphadenopathy Cardiac: Regular rate and rhythm no murmurs rubs or gallops Respiratory: Clear to auscultation bilaterally no wheezes rales or crackles Abdomen: Soft, nontender, gravid Pelvic exam: Cervical exam 2/80/-3 heart tones baby A: 120/moderate variability/positive accelerations/negative decelerations baby B: 120/moderate variability/positive accelerations/negative decelerations Extremities: No peripheral edema normal peripheral pulses Psych: Normal affect normal demeanor nonpressured speech Bedside ultrasound: Baby A cephalic. Baby B breech Mom's Labs & Results 05/26/20 05/26/20 07:35 07:35 WBC 6.8 RBC 3.83 L Hgb 10.3 L Hct 31.8 L MCV 83.0 MCH 26.9 L MCHC 32.4 RDW Std Deviation 40.1 RDW Coeff of Zelalem 13.2 Plt Count 263 MPV 11.8 Immature Gran % (Auto) 0.400 Neut % (Auto) 65.9 Lymph % (Auto) 24.7 [place] % (Auto) 5.9 Eos % (Auto) 2.1 Baso % (Auto) 1.0 Absolute Neuts (auto) 4.5 Absolute Lymphs (auto) 1.67 Nucleated RBC % 0 Blood Type Pending Antibody Screen Pending Labs Blood Type: A RH: NEGATIVE RPR/VDRL/Syphilis Nonreactive Rubella status Immune HbSAg Negative Date Done: 12/02/19 Chlamydia Negative Gonorrhea Negative HIV/AIDS Non-Reactive Group B Strep: Negative Assessment plan: 34-year-old at 37 weeks and 2 days with di-di twins and IUGR baby A for induction of labor -[facility] -GBS negative -Pitocin induction -Rh- for RhoGam -IUGR baby A: For yeast culture operator at delivery -Anesthesia to see
[2020-05-26] MEDS: Lactated Ringers 500 ML 999 ML IV (17:36)
--- NOTE | 2020-05-26 17:46 | PCM.PN.BLA ---
Progress Note CE /-1, AROM clear fluid. Pit @ 20 mU. FHR A: 125/mod davey/+accel/no decel, FHR B: 130/mod davey/+accel/no decel. [place] q4. Cat I - continue current management. STROKE Vital Signs/Narrative: Vital Signs Temp Pulse BP Pulse Ox 05/26/20 17:41 99.4 F H 66 159/94 H 05/26/20 16:39 98.3 F 64 148/85 H 99 05/26/20 15:22 98.3 F 69 143/75 H 98
[2020-05-26] MEDS: fentaNYL-bupivacaine (epidural) 100 ML BAG EPIDURAL ×2 (18:13→22:18)
[2020-05-26] MEDS: Mag Hydrox/Al Hydrox/Simeth 30 ML UDC PO (19:48)
[2020-05-26] MEDS: Lactated Ringers 1,000 ML 200 ML IV (20:07)
[2020-05-27] VITALS (18 sets, daily range): BP systolic 123–159; BP diastolic 60–112; PULSE 50–82; RESP 16–18; TEMP 36.2–37.2; O2SAT 95–100
--- NOTE | 2020-05-27 | PLAC_PTH ---
PATIENT: JUDY CHILDERS LOC: [facility] U#:[id number] AGE/SX: 34/F ROOM: WP006 RE05/26/[address]: Dr. Pearl Elliott DO : 1985 BED: 1 DIS: 05/28/2020 SPEC #: [id number] RECD: 05/27/20 10:42 STATUS: COURTNEY REDash #: [id number] KEMI: 05/27/20 00:[address]: Pearl Elliott DEPT: SURGICAL PATHOLOGY RECD BY: Estevan Mahoney ENTERED: 05/29/20 10:57 SP TYPE: PLACENTA OTHR DR: No Primary Care Phys Tissues: Placenta, NOS Procedures: Surgery Specimen Level V HEADER OPERATION: Vaginal delivery PRE-OP DIAGNOSIS: Twins TISSUE SUBMITTED: Placenta MICROSCOPIC DIAGNOSIS Placenta A (375 gm): Umbilical cord - trivascular with no inflammation. Peripheral membranes - no pathologic change. Placental disc - mild Wendy-Yordy change, increased interparenchymal microcalcifications, intravillous congestion and focal nonspecific chronic villitis. See comment. AM:randy 05/30/2020 COMMENT Placenta B has been sent to an outside institution for evaluation. Clinical correlation is suggested. MICROSCOPIC DESCRIPTION Slides are reviewed. GROSS DESCRIPTION SPECIMEN: TWIN PLACENTA / CLINICAL INFORMATION: A. Weight: A - 2.16 kg; B - 2.685 kg B. Gestational Age: 37 weeks C. Sex: A - Male, B - Female PLACENTA A: PLACENTAL WEIGHT (POST FIXATION): 375 gm PLACENTAL DIMENSIONS: 16 x 13 x 3.5 cm PLACENTAL SHAPE: Usual ovoid PLACENTAL WEIGHT FOR GESTATIONAL AGE: Within 10-99th percentile MEMBRANES - Present A. Insertion: Marginal B. Site of rupture from edge: 3.5 cm from edge of placental disc C. Color of membrane: Muhammad-taylor D. Abnormalities: None UMBILICAL CORD - Present A. Color: Muhammad-taylor B. Insertion: Eccentric C. Length: 38 cm D. Diameter: 1.5 cm E. Number of vessels: Three F. Abnormalities: None PLACENTAL DISC - Present A. Color of surface: Muhammad-taylor B. surface abnormalities: None C. Maternal cotyledons: Intact with minimal tears D. Attached retro placental clot: No clot E. Cut surface: Dark red and spongy F. Lesions: None G. Separate clot: Absent SECTIONS SUBMITTED: 1. Membrane roll 2. Cord, maternal end 3. Cord, end 4. Placental disc, and maternal surfaces 5. Placental disc, and maternal surfaces 6. Placental disc, and maternal surfaces AM:randy 05/29/20 TC:5 CPT: 25614 x2
[2020-05-27] MEDS: Oxytocin 30 units/NS 500 ml 30 UNITS/500 ML IV.SOLN 334 UNITS IV (00:20)
[2020-05-27] MEDS: miSOPROStol 200 MCG Tablet 1000 MCG RECTAL (00:32)
--- NOTE | 2020-05-27 00:39 | OP.PCM_ITS ---
Vaginal Delivery Date of Procedure: 05/26/20 Pre-Operative Diagnosis: Term, Solange twins, IUGR baby A less than the 3rd perc entile Post-Operative Diagnosis: Term, Solange twins, IUGR baby A less than the 3rd percentile Surgery/ Procedure Performed: Spontaneous Vaginal Delivery Type of Anesthesia: Epidural Description of Procedure: Normal spontaneous vaginal delivery of di-di twins. Baby A vertex SALENA. Head and shoulders delivered with ease. Cord cut and clamped. Baby handed off to nursing. Baby B in complete breech presentation internal cephalic version performed with the assistance of bedside ultrasound, internal cephalic version successful. Baby B in vertex position after version SALENA. AROM for clear fluid when head well applied. Head and shoulders delivered with ease. Cord cut and clamped. Baby handed off to nursing. Placenta was x2 delivered with cord traction and fundal massage. Second-degree perineal laceration noted and repaired in typical fashion. EBL 400 cc Apgars baby A 8/9 baby B 9/9. Cytotec at 1000 mcg MI placed. Baby A delivered 05/26/2020. Baby B delivered after midnight making its delivery date 05/27/2020.
--- NOTE | 2020-05-27 00:47 | DCINST_ITS ---
Discharge Diet: No Restrictions Discharge Activity: Return to Normal Activity, May Drive, May Shower May resume sexual activity in: 2 weeks Weight Bearing Status: Weight bearing as tolerated Call your doctor if your incision/area has: Foul Smelling Discharge Call your doctor if you observe: Fever of 101 or Higher, Shortness of breath, Chest pain Additional Instructions: If you experience any of the following, contact your healthcare provider. * Bleeding that soaks a pad every hour for 2 hours * Fever 100.4 or higher * Unrelieved incision or abdominal pain * Swelling, redness, discharge or bleeding from your incision or episiotomy site * Your incision begins to separate * Problems urinating (including inability to urinate or burning while urinating). * Visual changes * Severe headache * Flu-like symptoms * Pain or redness in one of both of your breasts * Pain, warmth, tenderness or swelling in your legs, especially the calf area * Frequent nausea and vomiting * Symptoms of depression or anxiety If you experience any of the following, call 911 or go to the nearest Emergency Room. * Chest pain * Problems breathing * Seizure activity * Partial or complete paralysis of a body part, slurred speech, weakness or drooping of the face, or a sudden inability to walk or hold your balance Allergies/Adverse Reactions: Allergies Penicillins Allergy (Mild, Verified 05/26/20 08:00) Rash in childhood Medications to take at Discharge Pnv No.103/Folic/Om3s/Fish Oil [ Gummies] 1 tab PO DAILY 05/26/20 Please Follow Up With: Jeremías Elliott MD When: 1 week blood pressure check Primary Care Physician: Care Physician,No Primary [Primary Care Provider] - Test Results: Test results from this visit will be discussed in further detail at your follow- up appointment, if applicable.
--- NOTE | 2020-05-27 00:47 | PCM.DCVAG ---
Discharge Diet: No Restrictions Discharge Activity: Return to Normal Activity, May Drive, May Shower May resume sexual activity in: 2 weeks Weight Bearing Status: Weight bearing as tolerated Call your doctor if your incision/area has: Foul Smelling Discharge Call your doctor if you observe: Fever of 101 or Higher, Shortness of breath, Chest pain Additional Instructions: If you experience any of the following, contact your healthcare provider. Bleeding that soaks a pad every hour for 2 hours Fever 100.4 or higher Unrelieved incision or abdominal pain Swelling, redness, discharge or bleeding from your incision or episiotomy site Your incision begins to separate Problems urinating (including inability to urinate or burning while urinating). Visual changes Severe headache Flu-like symptoms Pain or redness in one of both of your breasts Pain, warmth, tenderness or swelling in your legs, especially the calf area Frequent nausea and vomiting Symptoms of depression or anxiety If you experience any of the following, call 911 or go to the nearest Emergency Room. Chest pain Problems breathing Seizure activity Partial or complete paralysis of a body part, slurred speech, weakness or drooping of the face, or a sudden inability to walk or hold your balance Allergies/Adverse Reactions: Allergies Penicillins Allergy (Mild, Verified 05/26/20 08:00) Rash in childhood Medications to take at Discharge Pnv No.103/Folic/Om3s/Fish Oil [ Gummies] 1 tab PO DAILY 05/26/20 Please Follow Up With: Jeremías Elliott MD When: 1 week blood pressure check Primary Care Physician: Care Physician,No Primary [Primary Care Provider] - Test Results: Test results from this visit will be discussed in further detail at your follow-up appointment, if applicable.
--- NOTE | 2020-05-27 01:29 | NURSING ---
Baby A blood type is B Weak RH, lab called. plan for RN to draw rhogam workup from mother to determine need for rhogam post delivery
--- NOTE | 2020-05-27 01:55 | NURSING ---
PT resting in bed. reports feeling really tired HR ranging from 45-60s. when HR dips to 45 pt appears pale. Lochia small to moderate amts and fundus remains firm. lungs clear per auscultation. Urine linsey in color in beck bag. urine output decreased 31ml/hr since beck placed around 1930. will contact provider for update
--- NOTE | 2020-05-27 02:09 | NURSING ---
[facility]ospital bindery machine setter/set up operator called. updated that this RN is attempting to contact provider, message left. Dr.James Elliott called and phone going straight to voice mail. bindery machine setter/set up operator states she will call and page both physicians. zinc plate grainer updated
--- NOTE | 2020-05-27 03:09 | EKG12_ITS ---
Test Reason : DYSRHYTHMIA Blood Pressure : / mmHG Vent. Rate : 052 BPM Atrial Rate : 052 BPM P-R Int : 142 ms QRS Dur : 076 ms QT Int : 438 ms P-R-T Axes : 051 064 043 degrees QTc Int : 407 ms Sinus bradycardia with sinus arrhythmia Otherwise normal ECG No previous ECGs available Confirmed by FERNANDA CONNER, SARAH ([id number]), editorial specialist KALPESH JADE ([id number]) on 05/30/2020 8:45:29 AM Referred By: DARIN Confirmed By:SARAH MICHAEL MD
[2020-05-27] MEDS: Lactated Ringers 1,000 ML 999 ML IV (03:18)
[2020-05-27 03:28] LABS: Absolute Lymphocyte Count 1.34 X10^3/uL (0.83-4.51); Absolute Neutrophil Count 9.3 X10^3/uL (2.0-7.7); Basophil# 0.05 X10^3/uL; Basophil% 0.4 % (0-1); Eosinophil# 0.04 X10^3/uL; Eosinophils% 0.4 % (0-5); Hemoglobin 9.6 g/dL (12.0-15.0); Lymphocyte # 1.34 X10^3/ul (4.0); Lymphocyte % 11.8 % (19-41); Mean Corpuscular Hgb 26.5 pg (27.0-32.0); Mean Corpuscular Volume 82.9 fL (81-99); Mean Platelet Vol. 11.3 fl (6.2-12.0); Monocyte# 0.62 X10^3/uL; Monocyte% 5.5 % (0-10); NRBC Flagged by Analyzer 0 % (0-5); Neutrophil # 9.26 X10^3/uL (2.7-7.7); Neutrophil % 81.5 % (47-70); Platelet Count 204 K/mm3 (150-450); RBC Distribution Width CV 13.3 % (11.6-14.6); RBC Distribution Width SD 40.4 fl (35.1-43.9); Red Blood Count 3.62 M/mm3 (4.2-5.4); White Blood Count 11.4 K/mm3 (4.4-11.0)
--- NOTE | 2020-05-27 03:39 | NURSING ---
Nursing field service supervisor Jane Contreras [facility] plan to send EKG results to ER for Dr Che to read. Sinus bradycardia confirmed. Will continue to monitor at this time.
--- NOTE | 2020-05-27 03:39 | NURSING ---
EKG sent to ER to be read, Sinus Cornelius per ER physician
[2020-05-27] MEDS: Ibuprofen 600 MG Tablet PO ×3 (04:18→23:59)
[2020-05-27] MEDS: Acetaminophen 500 MG Tablet 1000 MG PO ×2 (08:18→21:15)
--- NOTE | 2020-05-27 11:39 | NURSING ---
Bedside US performed by Dr Veronica. Uterus normal and bladder emptied. Confirmed patient is just dehydrated
--- NOTE | 2020-05-27 11:46 | PCM.PN.OB ---
Subjective: Past small clot this morning. Overall asymptomatic, no major bleeding overnight. Pain well controlled. - Physical Exam Vitals/I&O's: Vital Signs Temp Pulse Resp BP Pulse Ox 97.1 F L 54 L 18 134/70 H 97 05/27/20 11:14 05/27/20 11:14 05/27/20 11:14 05/27/20 11:14 05/27/20 11:14 Oxygen Delivery Method Room Air Weight: 211 lb 10.3 oz Body Mass Index (BMI) 29.5 Intake and Output for Last 24 Hours 05/25/20 05/26/20 05/27/20 23:59 23:59 23:59 Intake Total 1593.81 / 1593.81 2322.80 / 2322.80 Output Total 650 / 650 Balance 1593.81 / 1593.81 1672.80 / 1672.80 General: Alert, Oriented x3, Cooperative, No apparent distress HEENT: Atraumatic, PERRLA, Normocephalic Oral: Moist Mucosa Neck: Supple, No JVD Cardiovascular: Regular rate - 50s, Regular Rhythm Abdomen: Soft, Non Tender, - - Uterus firm and below umbilicus. Bedside ultrasound shows thin endometrial stripe Extremities: No clubbing, No cyanosis, No edema Neurological: Neuro grossly intact Psych/Mental Status: Normal Affect, Appropriate, Alert and oriented to time, place, person, mood and affect Laboratory Results 05/27/20 03:15: WBC 11.4 H, RBC 3.62 L, Hgb 9.6 L, Hct 30.0 L, MCV 82.9, MCH 26.5 L, MCHC 32.0, RDW Std Deviation 40.4, RDW Coeff of Zelalem 13.3, Plt Count 204, MPV 11.3, Immature Gran % (Auto) 0.400, Neut % (Auto) 81.5 H, Lymph % (Auto) 11.8 L, [place] % (Auto) 5.5, Eos % (Auto) 0.4, Baso % (Auto) 0.4, Absolute Neuts (auto) 9.3 H, Absolute Lymphs (auto) 1.34, Nucleated RBC % 0 05/27/20 03:15: Screen NEGATIVE, Baby's Blood Type B WEAK RH D, Baby's GUIDO NEGATIVE Current Medications Acetaminophen (Acetaminophen 500 Mg Tablet) 1,000 mg PO Q8H PRN PRN PRN Reason: Pain Score 1-3 Last Admin: 05/27/20 08:18 Dose: 1,000 mg Documented by: Bisacodyl (Bisacodyl 10 Mg Suppository) 10 mg RECTAL UD PRN PRN Reason: If no BM Dibucaine (Dibucaine 30 Gm Tube) 1 applic TOPICAL TID PRN PRN; Protocol PRN Reason: Discomfort Hydrocortisone (Hydrocortisone 2.5% Crm) 1 applic TOPICAL TID PRN PRN; Protocol PRN Reason: Discomfort Ibuprofen (Ibuprofen 600 Mg Tablet) 600 mg PO Q6H PRN PRN PRN Reason: Pain Score 1-3 Last Admin: 05/27/20 04:18 Dose: 600 mg Documented by: Ondansetron HCl (Ondansetron 4 Mg/2 Ml Vial) 4 mg IV Q4H PRN PRN PRN Reason: Nausea Senna/Docusate Sodium (Senna/Docusate Sodium 1 Tablet) 1 - 2 tablet PO DAILY PRN PRN PRN Reason: Constipation Simethicone (Simethicone 80 Mg Tablet) 80 mg PO PCHS PRN PRN Reason: Indigestion/Stomach pain Sodium Chloride (0.9% Saline Lock 10 Ml Syringe) 5 - 15 ml IV UD PRN PRN Reason: SALINE FLUSH Zolpidem Tartrate (Zolpidem Tartrate 5 Mg Tablet) 5 mg PO QHS PRN PRN PRN Reason: Insomnia Medical Necessity - Tobacco Use Smoking Status: Former smoker Assessment/Plan day 1 status post of di-ditwins. Overnight with bradycardia, EKG showed sinus tachycardia. Patient overall asymptomatic. All other vital signs within normal limits. This morning with heart rate 50s. Based on overall evaluation and overlooking previous vital signs this is likely her baseline as she was in the 70s during labor in the 50s during her epidural. Blood clot passed this morning evaluated small normal sized blood clot . As noted above bedside ultrasound with thin endometrial stripe. No major bleeding overnight. Hemoglobin stable. All reassuring. We will continue p.o. hydration. Breast-feeding. Baby being in special care nursery
[2020-05-27] MEDS: 0.9% Saline Lock 10 ML Syringe IV (13:54)
[2020-05-28 02:15] VITALS: BP 115/69; PULSE 60; RESP 16; TEMP 36.6
[2020-05-28] MEDS: Acetaminophen 500 MG Tablet 1000 MG PO (05:50)
[2020-05-28] MEDS: Ibuprofen 600 MG Tablet PO (08:51)
[2020-05-28] MEDS: Senna/Docusate Sodium 1 Tablet PO (08:51)
[2020-05-28 08:59] VITALS: BP 147/79; PULSE 50; RESP 14; TEMP 36.6; O2SAT 98
[2020-05-28 09:59] LABS: Pathology Specimen OB SEE PATHOLOGY REPORT
--- NOTE | 2020-05-28 11:04 | PN.OBGYN_ITS ---
Subjective: No overnight complaints. Pain well controlled. Minimal lochia. - Physical Exam Vitals/I&O's: Vital Signs Temp Pulse Resp BP Pulse Ox 97.8 F 50 L 14 147/79 H 98 05/28/20 08:59 05/28/20 08:59 05/28/20 08:59 05/28/20 08:59 05/28/20 08:59 Oxygen Delivery Method Room Air Weight: 211 lb 10.3 oz Body Mass Index (BMI) 29.5 Intake and Output for Last 24 Hours 05/26/20 05/27/20 05/28/20 23:59 23:59 23:59 Intake Total 1593.81 / 1593.81 2322.80 / 2322.80 Output Total 1150 / 1150 Balance 1593.81 / 1593.81 1172.80 / 1172.80 General: Alert, Oriented x3, Cooperative, No apparent distress HEENT: Atraumatic, PERRLA, Normocephalic Oral: Moist Mucosa Neck: Supple Abdomen: Soft, Non Tender, - - Uterus firm below umbilicus Extremities: No clubbing, No cyanosis Neurological: Neuro grossly intact Psych/Mental Status: Normal Affect, Appropriate, Alert and oriented to time, place, person, mood and affect Current Medications Acetaminophen (Acetaminophen 500 Mg Tablet) 1,000 mg PO Q8H PRN PRN PRN Reason: Pain Score 1-3 Last Admin: 05/28/20 05:50 Dose: 1,000 mg Documented by: Bisacodyl (Bisacodyl 10 Mg Suppository) 10 mg RECTAL UD PRN PRN Reason: If no BM Dibucaine (Dibucaine 30 Gm Tube) 1 applic TOPICAL TID PRN PRN; Protocol PRN Reason: Discomfort Hydrocortisone (Hydrocortisone 2.5% Crm) 1 applic TOPICAL TID PRN PRN; Protocol PRN Reason: Discomfort Ibuprofen (Ibuprofen 600 Mg Tablet) 600 mg PO Q6H PRN PRN PRN Reason: Pain Score 1-3 Last Admin: 05/28/20 08:51 Dose: 600 mg Documented by: Ondansetron HCl (Ondansetron 4 Mg/2 Ml Vial) 4 mg IV Q4H PRN PRN PRN Reason: Nausea Senna/Docusate Sodium (Senna/Docusate Sodium 1 Tablet) 1 - 2 tablet PO DAILY PRN PRN PRN Reason: Constipation Last Admin: 05/28/20 08:51 Dose: 2 tablet Documented by: Simethicone (Simethicone 80 Mg Tablet) 80 mg PO PCHS PRN PRN Reason: Indigestion/Stomach pain Sodium Chloride (0.9% Saline Lock 10 Ml Syringe) 5 - 15 ml IV UD PRN PRN Reason: SALINE FLUSH Last Admin: 05/27/20 13:54 Dose: 10 ml Documented by: Zolpidem Tartrate (Zolpidem Tartrate 5 Mg Tablet) 5 mg PO QHS PRN PRN PRN Reason: Insomnia Medical Necessity - Tobacco Use Smoking Status: Former smoker Assessment/Plan day two status post of di-ditwins. Pain well controlled. Baby B shipped to [facility] for pneumothorax. Patient with elevated blood pressures, gestational hypertension. Okay to discharge mom home and follow-up for blood pressure check in 1 week. Patient to go to [facility] on hotel status with baby A.
[2020-05-28 14:00] VITALS: BP 156/82; PULSE 52; RESP 14; TEMP 36.4; O2SAT 98
[2020-05-28 14:15] VITALS: BP 136/75
== END 2020-05-28 14:55 | disposition home or self-care (01) | DRG 807 ==
PROVIDERS: Obstetrics & Gynecology; Admitting Provider Student in an Organized Health Care Education/Training Program; Visit Provider Student in an Organized Health Care Education/Training Program
DX: O36.5931 Maternal care for other known or suspected poor fetal growth, third trimester, fetus 1 (principal); Z37.2 Twins, both liveborn; O30.043 Twin pregnancy, dichorionic/diamniotic, third trimester; Z3A.37 37 weeks gestation of pregnancy; O99.334 Smoking (tobacco) complicating childbirth; F17.200 Nicotine dependence, unspecified, uncomplicated; O32.1XX2 Maternal care for breech presentation, fetus 2; O70.1 Second degree perineal laceration during delivery
CPT/HCPCS: 59050; 76815; 85025; 85461; 86850; 86900; 86901; 88307; 90384; 93005; 99218; J7120; A4216; G0378; J2405; J2790

== ENCOUNTER → 2021-03-05 | Outpatient (CLI) | payer BC, MEDICAID, SELFPAY ==
[2021-03-08 16:34] LABS: HPV APTIMA, High Risk Negative (Negative)
== END | disposition home or self-care (01) ==
LOC: LABSPEC 09:38
PROVIDERS: Visit Provider Obstetrics & Gynecology
DX: Z12.4 Encounter for screening for malignant neoplasm of cervix (principal)
CPT/HCPCS: 87624; 88175; G0145

== ENCOUNTER → 2022-01-11 | Outpatient (CLI) | payer BC, MEDICAID, SELFPAY ==
[2022-01-14 21:07] LABS: Chlamydia By Nucleic Acid AMP Negative (Negative)
[2022-01-15 15:11] LABS: Gonococcus By Nucleic Acid AMP Negative (Negative)
== END | disposition home or self-care (01) ==
LOC: LABSPEC 15:17
PROVIDERS: Visit Provider Obstetrics & Gynecology
DX: Z11.3 Encounter for screening for infections with a predominantly sexual mode of transmission (principal)
CPT/HCPCS: 87491; 87591